=== PATIENT | female | born 1950 | race Caucasian/White ===

== ENCOUNTER → 2017-01-22 | Outpatient (CLI) | payer MEDICARE, BC ==
[~2017-01-22] MED LIST: OMNIPAQUE 350 MG/ML, 100ML BOTTLE ONE
== END | disposition home or self-care (01) ==
LOC: CFH 08:58
PROVIDERS: ATTEND Specialist
DX: K22.70 Barrett's esophagus without dysplasia (principal); J43.9 Emphysema, unspecified; N28.1 Cyst of kidney, acquired; R59.9 Enlarged lymph nodes, unspecified
CPT/HCPCS: 71260; 74160; Q9967

== ENCOUNTER → 2017-01-30 | Outpatient (CLI) | payer MEDICARE, BC ==
[~2017-01-30] MED LIST changes: +ASCO-96 PO; +ASPI-496 PO; +CALC-126 PO; +CELE100C PO; +CETI10TA18 PO; +CYCL1DRO EACHEYE; +ESCI20TA PO; +GLIM4TAB2 PO; +INSU100I28 SQ; +LACT1CAP61 PO; +LEVO112T2 PO; +LIRA0.6P SQ-INSULIN; +LOSA100T6 PO; +LUTE10TA PO; -OMNIPAQUE 350 MG/ML, 100ML BOTTLE ONE; +OPTIFIBER PO; +SITA1TAB5 PO; +WILD SALMON OIL PO
[2017-01-30 10:33] LABS: ASPARTATE AMINO TRANSFERASE 50 U/L (15-37); BLOOD UREA NITROGEN 21 mg/dL (7-18)
== END | disposition home or self-care (01) ==
LOC: STAR 09:23
PROVIDERS: ATTEND Internal Medicine Geriatric Medicine
DX: Z01.818 Encounter for other preprocedural examination (principal); M19.90 Unspecified osteoarthritis, unspecified site; F41.9 Anxiety disorder, unspecified; E11.9 Type 2 diabetes mellitus without complications; I10 Essential (primary) hypertension; E03.9 Hypothyroidism, unspecified; K21.9 Gastro-esophageal reflux disease without esophagitis; K22.711 Barrett's esophagus with high grade dysplasia
CPT/HCPCS: 36415; 80053; 93005

== ENCOUNTER 2017-02-07 07:57 | Day surgery (SDC) | payer MEDICARE, BC ==
[~2017-02-07] VITALS: Ht 165.1 cm; Wt 97.0 kg
[2017-02-07 08:15] VITALS: BP 137/71
[2017-02-07] MEDS ORDERED: PROPOFOL 10 MG/ML, 20ML ONE (10:50)
[2017-02-07] MEDS ORDERED: CEFAZOLIN 1,000 MG ONE (10:50)
[2017-02-07] MEDS ORDERED: BUPIVACAINE/PF 0.5% ONE (11:04)
[2017-02-07] MEDS ORDERED: MEPERIDINE/PF 25MG/0.5ML IVPush PRN (11:30)
[2017-02-07] MEDS ORDERED: ACETAMINOPHEN 325 MG TABLET PO PRN (11:30)
[2017-02-07] MEDS ORDERED: LABETALOL 5MG/ML, 20ML IV PRN (11:30)
[2017-02-07] MEDS ORDERED: FENTANYL PF 100 MCG/2ML IV PRN (11:30)
[2017-02-07] MEDS ORDERED: HYDROcodone/APAP 7.5-325MG/15ML UDC PO PRN (11:30)
[2017-02-07] MEDS ORDERED: hydrALAzine 20 MG/ML, 1ML IV PRN (11:30)
[2017-02-07] MEDS ORDERED: OXYcodone 5 MG/5 ML ORAL.SOL UDC PO PRN (11:30)
[2017-02-07] MEDS ORDERED: EPHEDRINE 50 MG/ML, 1ML IVPush PRN (11:30)
[2017-02-07] MEDS ORDERED: HYDROmorphone 1 MG/ML, 1ML IV PRN (11:30)
[2017-02-07] MEDS ORDERED: PROMETHAZINE 25 MG/ML, 1ML IV PRN (11:30)
[2017-02-07] MEDS ORDERED: MIDAZOLAM 1 MG/ML, 2ML IV PRN (11:30)
[2017-02-07] MEDS ORDERED: ONDANSETRON 2MG/ML, 2ML IVPush PRN (11:30)
[2017-02-07] MEDS ORDERED: BUPIVACAINE/PF 0.5% INFIL ONE (11:32)
[2017-02-07] MEDS ORDERED: OXYcodone 5 MG/5 ML ORAL.SOL UDC ONE (11:58)
[2017-02-07] MEDS ORDERED: PROMETHAZINE 25 MG/ML, 1ML IM PRN (13:00)
[2017-02-07] MEDS ORDERED: OXYcodone/APAP 5/325MG TABLET PO PRN (13:00)
[2017-02-07] MEDS ORDERED: KETOROLAC 30 MG/1 ML IV SCH (13:00)
[2017-02-07] MEDS ORDERED: morphine SULFATE 10 MG/ML, 1ML IV PRN (13:00)
[2017-02-07] MEDS ORDERED: ONDANSETRON 2MG/ML, 2ML IV PRN (13:00)
[2017-02-07] MEDS ORDERED: PLEASE ENTER HEIGHT AND WEIGHT MC SCH (13:00)
[2017-02-07] MEDS ORDERED: OXYC5CAP4 PO (13:58)
== END 2017-02-07 14:23 | disposition home or self-care (01) ==
LOC: OR 07:57 → 4NOR 08:14 → OR 14:23
PROVIDERS: ATTEND Orthopaedic Surgery
DX: S53.31XA Traumatic rupture of right ulnar collateral ligament, initial encounter (principal); I10 Essential (primary) hypertension; E11.9 Type 2 diabetes mellitus without complications; K21.9 Gastro-esophageal reflux disease without esophagitis; W18.30XA Fall on same level, unspecified, initial encounter; Y93.9 Activity, unspecified; Y92.9 Unspecified place or not applicable; Y99.9 Unspecified external cause status; Z91.09 Other allergy status, other than to drugs and biological substances
CPT/HCPCS: 26540; 73140; 76000; 82962; J0690; J1885; J2704; J3490

== ENCOUNTER 2017-02-10 05:28 | Day surgery (SDC) | payer MEDICARE, BC ==
[~2017-02-10] VITALS: Ht 165.1 cm; Wt 89.0 kg
[~2017-02-10 05:28] MED LIST changes: +FENTANYL PF 250 MCG/5ML ONE; +MIDAZOLAM 1 MG/ML, 2ML ONE; +OXYC5CAP4 PO
[2017-02-10 06:15] VITALS: BP 149/78
[2017-02-10] MEDS ORDERED: LACTATED RINGERS 1,000 ML IV SCH (06:15)
[2017-02-10] MEDS ORDERED: FENTANYL PF 100 MCG/2ML ONE ×2 (07:09→10:48)
[2017-02-10] MEDS ORDERED: MIDAZOLAM 1 MG/ML, 2ML ONE ×2 (07:09→10:48)
[2017-02-10] MEDS ORDERED: KETAMINE 10 MG/ML, 20ML ONE (07:45)
[2017-02-10] MEDS ORDERED: FENTANYL PF 100 MCG/2ML IV PRN (08:00)
[2017-02-10] MEDS ORDERED: PROMETHAZINE 25 MG/ML, 1ML IV PRN (08:00)
[2017-02-10] MEDS ORDERED: MEPERIDINE/PF 25MG/0.5ML IVPush PRN (08:00)
[2017-02-10] MEDS ORDERED: ONDANSETRON 2MG/ML, 2ML IVPush PRN (08:00)
[2017-02-10] MEDS ORDERED: HYDROmorphone 1 MG/ML, 1ML IV PRN (08:00)
[2017-02-10] MEDS ORDERED: LABETALOL 5MG/ML, 20ML IV PRN (08:00)
[2017-02-10] MEDS ORDERED: ACETAMINOPHEN 325 MG TABLET PO PRN (08:00)
[2017-02-10] MEDS ORDERED: OXYcodone 5 MG/5 ML ORAL.SOL UDC PO PRN (08:00)
[2017-02-10] MEDS ORDERED: hydrALAzine 20 MG/ML, 1ML IV PRN (08:00)
[2017-02-10] MEDS ORDERED: INSULIN REGULAR 100 UNITS/ML, 3ML VIAL SQ-INSULIN SCH (11:00)
[2017-02-10] MEDS ORDERED: PROPOFOL 10 MG/ML, 50ML ONE (11:01)
== END 2017-02-10 11:30 ==
LOC: OUT 05:28
PROVIDERS: ATTEND Internal Medicine Geriatric Medicine
DX: Z98.890 Other specified postprocedural states (principal); K44.9 Diaphragmatic hernia without obstruction or gangrene; E03.9 Hypothyroidism, unspecified; F41.9 Anxiety disorder, unspecified; E11.9 Type 2 diabetes mellitus without complications; I10 Essential (primary) hypertension; K21.9 Gastro-esophageal reflux disease without esophagitis; G47.30 Sleep apnea, unspecified; K22.70 Barrett's esophagus without dysplasia; Z87.39 Personal history of other diseases of the musculoskeletal system and connective tissue
CPT/HCPCS: 43237; 43270; 82962; J2250; J2704; J3010; J7120

== ENCOUNTER → 2017-03-03 | Outpatient (CLI) | payer MEDICARE, BC ==
[~2017-03-03] MED LIST changes: -FENTANYL PF 250 MCG/5ML ONE; -MIDAZOLAM 1 MG/ML, 2ML ONE
== END | disposition home or self-care (01) ==
LOC: PETCFH 08:49
PROVIDERS: ATTEND Internal Medicine Geriatric Medicine
DX: K31.84 Gastroparesis (principal); R59.0 Localized enlarged lymph nodes
CPT/HCPCS: 78264; A9541

== ENCOUNTER → 2017-03-27 | Outpatient (CLI) | payer MEDICARE, BC ==
[~2017-03-27] MED LIST changes: -LUTE10TA PO; +LUTE10TA2 PO; +OMNIPAQUE 350 MG/ML, 100ML BOTTLE ONE; +OXYC5CAP2 PO; -OXYC5CAP4 PO
== END | disposition home or self-care (01) ==
LOC: CFH 09:59
PROVIDERS: ATTEND Internal Medicine Geriatric Medicine
DX: I25.10 Atherosclerotic heart disease of native coronary artery without angina pectoris (principal); K31.84 Gastroparesis
CPT/HCPCS: 71260; 74160; 82565; Q9967

== ENCOUNTER 2017-04-07 05:52 | Day surgery (SDC) | payer MEDICARE, BC ==
[~2017-04-07] VITALS: Ht 165.1 cm; Wt 90.1 kg
[~2017-04-07 05:52] MED LIST changes: -OMNIPAQUE 350 MG/ML, 100ML BOTTLE ONE; +PANT40TA5 PO
[2017-04-07] MEDS ORDERED: LACTATED RINGERS 1,000 ML IV SCH (06:43)
[2017-04-07 06:45] VITALS: BP 158/72
[2017-04-07] MEDS ORDERED: KETAMINE 10 MG/ML, 20ML ONE (07:10)
[2017-04-07] MEDS ORDERED: ONDANSETRON 2MG/ML, 2ML ONE (07:36)
[2017-04-07] MEDS ORDERED: PROPOFOL 10 MG/ML, 20ML ONE (07:36)
[2017-04-07] MEDS ORDERED: DEXAMETHASONE 4 MG/ML, 1ML ONE (07:36)
[2017-04-07] MEDS ORDERED: HYDROmorphone 1 MG/ML, 1ML IV PRN (08:00)
[2017-04-07] MEDS ORDERED: FENTANYL PF 100 MCG/2ML IV PRN (08:00)
[2017-04-07] MEDS ORDERED: ALBUTEROL SULFATE 2.5 MG/3 ML NPPB PRN (08:00)
[2017-04-07] MEDS ORDERED: ACETAMINOPHEN 325 MG TABLET PO PRN (08:00)
[2017-04-07] MEDS ORDERED: MIDAZOLAM 1 MG/ML, 2ML IV PRN (08:00)
[2017-04-07] MEDS ORDERED: hydrALAzine 20 MG/ML, 1ML IV PRN (08:00)
[2017-04-07] MEDS ORDERED: MEPERIDINE/PF 25MG/0.5ML IVPush PRN (08:00)
[2017-04-07] MEDS ORDERED: OXYcodone 5 MG/5 ML ORAL.SOL UDC PO PRN (08:00)
[2017-04-07] MEDS ORDERED: ONDANSETRON 2MG/ML, 2ML IVPush PRN (08:00)
[2017-04-07] MEDS ORDERED: LABETALOL 5MG/ML, 20ML IV PRN (08:00)
[2017-04-07] MEDS ORDERED: PROMETHAZINE 25 MG/ML, 1ML IV PRN (08:00)
[2017-04-07] MEDS ORDERED: ACETAMINOPHEN 650 MG/20.3 ML UDC ONE (08:11)
[2017-04-07] MEDS ORDERED: ACETAMINOPHEN 650 MG/20.3 ML UDC PO PRN (08:30)
== END 2017-04-07 09:40 ==
LOC: OUT 05:52
PROVIDERS: ATTEND Internal Medicine Geriatric Medicine
DX: K22.719 Barrett's esophagus with dysplasia, unspecified (principal); K21.9 Gastro-esophageal reflux disease without esophagitis; F41.9 Anxiety disorder, unspecified; I10 Essential (primary) hypertension; E30.9 Disorder of puberty, unspecified; E11.9 Type 2 diabetes mellitus without complications; Z87.39 Personal history of other diseases of the musculoskeletal system and connective tissue; Z88.8 Allergy status to other drugs, medicaments and biological substances
CPT/HCPCS: 43270; 82962; J1100; J2405; J2704; J7120

== ENCOUNTER → 2018-02-05 | Outpatient (CLI) | payer MEDICARE, BC | END | disposition home or self-care (01) | LOC: CARD 09:02 | PROVIDERS: ATTEND Family Medicine | DX: E11.40 Type 2 diabetes mellitus with diabetic neuropathy, unspecified (principal); G56.03 Carpal tunnel syndrome, bilateral upper limbs; I10 Essential (primary) hypertension | CPT/HCPCS: 95886; 95908 ==

== ENCOUNTER → 2018-08-02 | Outpatient (CLI) | payer MEDICARE, BC ==
[~2018-08-02] MED LIST changes: -LOSA100T6 PO; +LOSA100T7 PO
== END | disposition home or self-care (01) ==
LOC: CFH 13:22
PROVIDERS: ATTEND Family Medicine
DX: M51.37 Other intervertebral disc degeneration, lumbosacral region (principal); M43.8X6 Other specified deforming dorsopathies, lumbar region
CPT/HCPCS: 72114

== ENCOUNTER → 2019-07-14 | Outpatient (CLI) | payer MEDICARE, BC ==
[~2019-07-14] MED LIST changes: -GLIM4TAB2 PO; +GLIM4TAB4 PO; +LOSA100T14 PO; -LOSA100T7 PO
== END | disposition home or self-care (01) ==
LOC: CFH 11:03
PROVIDERS: ATTEND Family Medicine
DX: M24.675 Ankylosis, left foot (principal)